=== PATIENT | female | born 1990 | race Caucasian/White ===

== ENCOUNTER 2018-04-11 11:50 | Day surgery (SDC) | payer BC, OTHER ==
--- NOTE | 2018-04-10 20:47 | PDGENHP ---
History and Physical - Chief Complaint LEFT HIP PAIN - History of Present Illness 1.~~~Left~Hip Dyplasia 2.~~~Left~Femoroacetabular impingement (TOÑA) Cam type,~with~resultant labral tear 3. ~~History of Right LANDY 2008 4. ~~Right hip Heterotopic Ossification~- Anterolateral HISTORY OF PRESENT ILLNESS: Demetriusis a 27 y.o.~very~~active female~who I have had the pleasure to consult on today. I have enjoyed meeting her.~She~lives in [place].~~Demetrius works for [employer].~~She~is single;~she~has no~children. ~ Demetriusenjoys dancing~contemporary/Jazz~(5-7hrs/week), and yoga. Anika's~left~hip pain~started two years ago, with~no~recalled trauma or injury, and with no~previous complaints. Demetriushas~a known history of hip dysplasia. 04/2008: Right LANDY Dr. Pettit ([place]) Presentation today is of~anterior, lateral~left~hip pain. ~The hip~does not~ wake her~at night and does~click and catch on her. Sitting~can be a real struggle~for her.~Demetriusdoes~report suffering from lower back pain episodes. Demetriushas not~participated in physical therapy and has~tried other conservative measures including Prolotherapy, Rolfing, and accupuncture.~Emily~ has not~received sufficient symptomatic improvement. Demetriushas not~utilized medication for pain management. Demetriusdenies issues with the right~hip. ~ Demetriusunderstands that she~has a hip and pelvis problem which should be researched and wishes to get a better understanding of her~hip status, followed by an establishment of a treatment strategy, hoping she~would be able to get back to her~well being active life. History: Past medical history:~~ None which is relevant~ Relevant familial history:~None which is relevant~ Past surgical history:~ No. Surgery Anesthesia Year 1 Right Hip arthroscopy/Right LANDY general 2008 Demetriusdenies problematic issues with general anesthesia in the past. I have reviewed, verified and agree with the past medical, surgical, family and social history. Current Medications:~currently has no medications in their medication list. ALLERGIES:~has No Known Allergies. Objective: Physical Examination: Demetriusis 5~feet 4~inches tall and weighs 135~Lbs. Demetriusis AAO x3; she~ is well-nourished, in NAD. Skin is warm and dry. ~Breathing is non-labored. ~CV with RRR by pulse. Abdomen is soft, NTND. Currently,~she~walks with a normal~gait. Trendelenburg sign is~negative~and proprioception is normal,~both~sides. She~presents with mild~signs of joint laxity. Beightons Score:~1 Lower spine examination is~negative~for sciatic or femoral nerve irritation with negative~SLR &~femoral stretch tests. Range of motion of the spine is normal~for flexion, extension, and rotations, with no~associated pain. Strength, Sensation and pulses are~normal -~bilaterally Ankles and knees exams are~normal~and no~mal-alignment is evident. She~has no leg length discrepancy. Thigh circumference is~symmetric~with no evidence for muscle atrophy~on both~ sides. Hip ROM (degrees): FL ER At 90~hip FL IR At 90~hip FL AB AD EX IR Neutral hip ER Neutral hip R 105 55 25 45 10 10 30 30 L 120 55 25 50 10 10 30 10 Specific hip and pelvis tests: Impingement Test WILBERTO Roll Add. Longus R Negative Negative Negative Negative L ++ Negative Negative + Glut. Med ITB Posterior Imp R Negative 5/5 strength Negative 5/5 strength Negative L Negative 5/5 strength Negative 5/5 strength Negative Squeeze test measured~weak Bony Symphysis pubis is~pain free~to touch while concentric activity of the rectus abdominis, does not~produce pain at its insertion. Ilio Psos specific tests are~negative for pain during cycling for~both hips~and no snap. HF has~weakness no pain~both hips. LEFT CAPSULE TENDERNESS Greater trochanteric burse is~pain free~on both hips. Piriformis tests: FAIR is~negative,~with no~local signs of neuritis related to sciatic nerve. SIJs examination is~normal~with normal~WILBERTO in relation and local tenderness. Hamstrings tests are~negative~functional contraction and negative~tendinopathy both hips. Imaging: Radiology studies which I have personally reviewed, analyzed and measured are below: XR: AP of the hip and pelvis: Performed in a~good~technique Coccyx to pubic symphysis distance~2~cm. 0~degrees [place] Lines are~preserved. Minimal~Pathological signs are seen in the Symphysis Pubis. Minimal~Pathological signs are seen at the Ischial tuberosity. ~ Specific measurements show: NSA~ LCE Sourcil~Angle Sharp's angle Lat. Cam Lat. Pincer C.Over~sign Head~Coverage % ATDmm R N 29 3 N/A - - N/A N N L N 16 15 42 - - 12:30 72 N Pos. wall sign ISS NAD ~~Dysplasia Comments R Negative Negative N/A Negative L Negative Negative 12.3~mm ++ Sclerosis Sup. Lat. OA Cysts Joint Space-WBZ Joint Space-Medial R Negative Negative Negative 3.9~mm 3.1~mm L Negative Negative Negative 4.5~mm 4.2~mm X Table lateral: Anterior cam lesion is~seen~on the left hip. Alpha Angle: ~ Left~65~degrees X-Ray: Right hip shows good bony correction from previous LANDY. Right hip heterotrophic ossification lateral to joint. Impression and plan:Matt Donaldson~is a 27 y.o.~active female~suffering from symptomatic Left~hip pain due to~Hip Dyplasia and~Femoroacetabular impingement (TOÑA)~Cam type,~with~ resultant labral tear causing significant disability to~her~and altering her~sport and life activities. Physical examination, imaging, and~her~story correspond with the diagnosis mentioned above. I explained that hip dysplasia is a condition wherein the hip joint has excessive play~and instability due to a variety of factors, including the depth and adequacy of the socket, the orientation of the femur bone, and ligament laxity around the hip joint. Dysplasia ranges in severity from borderline to angeline, with treatment options being specific to the specific nature of the problem. Left untreated, the instability in the hip joint can cause progressive tearing of the labrum and deterioration of the surface cartilage, ultimately resulting in progressive osteoarthritis of the hip. I explained that femoroacetabular impingement (TOÑA - Cam type) arises due to a bony or soft tissue conflict between the femur (ball) and acetabulum (socket) caused by an abnormality in the shape of the femoral head and neck. Over time, repetitive impingement can result in damage to the labrum and adjacent surface cartilage within the socket, ultimately giving rise to progressive osteoarthritis of the hip. I explained that although a labral tear can be a source of pain, it is rarely the root of the problem and typically occurs secondary to an underlying abnormality in the shape and mechanics of the hip joint. I reviewed conservative treatment options for Dysplasia and TOÑA including activity modification to avoid positions of impingement or instability, physical therapy, non-steroidal anti-inflammatory medications, and various injections (corticosteroid and PRP) aimed at reducing inflammation in the hip joint or/and preventing dynamic instability and impingement. PRP injections may promote healing and reduce symptoms in certain cases but it will not repair chronically damaged tissue. Although these measures may help to buy time~and reduce current level of symptoms, they are not a definitive solution to the problem given the underlying abnormality in the shape of the hip joint. Patients who have failed conservative management and continue to experience symptoms are candidates for definitive surgical treatment, which may consist of hip arthroscopy alone or in combination with more invasive bony realignment procedures of the hip socket and/or femur called periacetabular osteotomy (LANDY) or derotational femoral osteotomy (DFO). Hip arthroscopy typically includes treating the labrum with either repair or reconstruction of the torn labrum; as well as addressing the underlying abnormalities by restoring the normal shape to the hip joint. If the cartilage is damaged a Microfracture surgical procedure may also be necessary to help stimulate the growth of fibrocartilage. If a patient requires a labral reconstruction or a Microfracture, the initial rehabilitation from the surgery may take longer, but the cloth winding supervisor results are typically favorable. I reviewed the technical aspects of periacetabular osteotomy (LANDY) including risks, benefits, and expected course of recovery.~Anika~understands that LANDY is an inpatient procedure carried out through two medium sized incisions on the front and back of the hip joint. The hip socket is cut, realigned, and stabilized with 2 3 internal screws. Risks include infection, bleeding, injury to nearby nerves or vessels, stiffness, persistent pain, instability, failure of bony healing, implant related complications, and venous thromboembolic disease. Rarely, revision surgery may be required to address these problems. Risks, potential complications, side effects and recovery from surgical procedure were discussed in length. We explained how this surgery is an open procedure, and though patients tend to do well in the long-term, it involves significant pain in the first 2-4 weeks post-op and a rather lengthy rehab.~Overall recovery takes approximately 6 12~months depending on the extent of damage and degree of repair. Demetriusunderstands that she~will undergo hip arthroscopy 1 week prior to the LANDY to address damage inside the hip joint. Demetriusunderstands that hip arthroscopy and LANDY are two separate procedures that are best performed one week apart, with the arthroscopy commencing first to "tighten up" any pathology evident in the hip joint (labral repair, etc.) and the LANDY open procedure occurring 7-10 days later to realign the acetabulum. Demetriuswill review the info presented. In order to obtain more detailed information regarding the alignment, orientation, and shape of the bony hip and pelvis I will order a CT scan to be performed. The results of the CT scan, including femoral torsion and acetabular version measured values and 3D images, will aid me in deciding on the best treatment strategy and surgical pre-planning. In order to better evaluate the soft tissues and cartilage of the hip joint, I will order a~LEFT~MRI scan. Demetriuswill contact us if she~wishes to pursue further treatment in the future. Demetriusis happy with this plan. I have also supplied~her~with handouts, outlining the expected surgical treatment and rehab involved. I wish~Demetriusall the best, ~~ Chai Barraza, PAC History Information - Allergies/Home Medication List Allergies/Adverse Reactions: No Known Allergies Allergy (Verified 03/21/18 13:02) Home Medications: Herbals/Supplements -Info Only 1 ea PO DAILY 04/06/18 [Last Taken Unknown] I have personally reviewed and updated: medical history - Social History Smoking Status: Former smoker Review of Systems Review of Systems: Physical Exam Physical Exam:
[2018-04-11] MEDS ORDERED: ceFAZolin 2 GM/DEXTROSE 100 ML IV ONE (12:00)
[2018-04-11] MEDS ORDERED: ACETAMINOPHEN 500 MG TAB PO ONE (12:00)
[2018-04-11] MEDS ORDERED: PREGABALIN 150 MG CAP PO ONE (12:00)
[2018-04-11] MEDS ORDERED: LR 1,000 ML IV ONE (12:39)
[2018-04-11] MEDS ORDERED: EPINEPHrine 1 MG/ML INJ ONE (12:49)
[2018-04-11] MEDS ORDERED: BUPIVACAINE 0.25% 30 ML SDV ONE (12:49)
[2018-04-11] MEDS ORDERED: EPINEPHrine 30 MG/30 ML MDV (0.1 MG/0.1 ML) ONE (12:50)
[2018-04-11] MEDS ORDERED: SCOPOLAMINE HYDROBROMIDE 1 MG/3 DAYS PATCH TD ONE (14:55)
[2018-04-11] MEDS ORDERED: MIDAZOLAM 2 MG/2 ML VIAL IVP ONE (14:55)
--- NOTE | 2018-04-11 15:04 | PDANEPAE ---
ANE Past Medical History - Cardiovascular History Hx Hypertension: No Hx Arrhythmias: No Hx Chest Pain: No Hx Coronary Artery / Peripheral Vascular Disease: No Hx CHF / Valvular Disease: No Hx Palpitations: No - Pulmonary History Hx COPD: No Hx Asthma/Reactive Airway Disease: No Hx Recent Upper Respiratory Infection: No Hx Oxygen in Use at Home: No Hx Sleep Apnea: No Sleep Apnea Screening Result - Last Documented: Negative - Neurologic History Hx Cerebrovascular Accident: No Hx Seizures: No Hx Dementia: No Neurologic History Comment: hx of migraines. hx of numbness on left side of body- associated with anxiety and migraines - Endocrine History Hx Diabetes: No - Renal History Hx Renal Disorders: No - Liver History Hx Hepatic Disorders: No - Neurological & Psychiatric Hx Hx Neurological and Psychiatric Disorders: Yes Neurological / Psychiatric History Comment: anxiety. PTSD - Cancer History Hx Cancer: No - Congenital Disorder History Hx Congenital Disorders: Yes Congenital History Comment: hip dysplasia - GI History Hx Gastrointestinal Disorders: Yes Gastrointestinal History Comment: digestive issues- stable currently with herbs - Other Health History Other Health History: wears contacts. sores on buttocks, started as pimples currently healing - Chronic Pain History Chronic Pain: Yes (bilateral hips) - Surgical History Prior Surgeries: right LANDY in [place] 04/2008. wisdom teeth removal ANE Review of Systems Review of Systems: - Exercise capacity METS (RN): 4 METS ANE Patient History - Allergies Allergies/Adverse Reactions: No Known Allergies Allergy (Verified 03/21/18 13:02) - Home Medications Home Medications: Herbals/Supplements -Info Only 1 ea PO DAILY 04/06/18 [Last Taken 04/08/18] - NPO status NPO Since - Liquids (Date): 04/10/18 NPO Since - Liquids (Time): 23:30 NPO Since - Solids (Date): 04/10/18 NPO Since - Solids (Time): 19:30 - Smoking Hx Smoking Status: Former smoker - Family Anes Hx Family Hx Anesthesia Complications: none ANE Labs/Vital Signs - Vital Signs Vital Signs: reviewed preoperatively; see RN documention for details Blood Pressure: 118/88 Heart Rate: 89 Respiratory Rate: 16 O2 Sat (%): 98 Height: 162.56 cm Weight: 61.235 kg ANE Physical Exam - Airway Neck exam: FROM, decreased ROM Mallampati Score: Class 1 Mouth exam: normal dental/mouth exam - Pulmonary Pulmonary: clear to auscultation - Cardiovascular Cardiovascular: regular rate and rhythym - ASA Status ASA Status: II
[2018-04-11] MEDS ORDERED: fentaNYL 100 MCG/2 ML INJ ONE ×3 (15:10→18:27)
[2018-04-11] MEDS ORDERED: PROPOFOL 200 MG/20 ML VIAL ONE ×2 (15:10→16:54)
[2018-04-11] MEDS ORDERED: ROCURONIUM 50 MG/5 ML VIAL ONE (15:11)
[2018-04-11] MEDS ORDERED: DEXAMETHASONE 4 MG/ML VIAL ONE (15:11)
[2018-04-11] MEDS ORDERED: PHENYLEPHRINE HCL 100 MCG/ML SYR ONE (16:06)
[2018-04-11] MEDS ORDERED: GLYCOPYRROLATE 0.2 MG/1 ML VIAL ONE (17:10)
[2018-04-11] MEDS ORDERED: ONDANSETRON 4 MG/2 ML VIAL ONE (17:17)
[2018-04-11] MEDS ORDERED: NALOXONE HCL 0.4 MG/ML INJ IVP PRN (17:37)
[2018-04-11] MEDS ORDERED: oxyCODONE IR 5 MG TAB PO PRN (17:37)
[2018-04-11] MEDS ORDERED: PROMETHAZINE HCL 25 MG/ML INJ IVP PRN (17:37)
--- NOTE | 2018-04-11 17:38 | POSTANESTH ---
Post Anesthetic Evaluation Cardiovascular Status: Normal, Stable Respiratory Status: Normal, Stable Level of Consciousness/Mental Status: Mildly Sleepy, Arousable Pain Control: Adequate, Prn Tx Ordered Nausea/Vomiting Control: Adequate, Prn Tx Ordered Complications Possibly Related to Anesthesia: None Noted
[2018-04-11] MEDS: fentaNYL 100 MCG/2 ML INJ IVP PRN ×2 (18:30→18:40)
[2018-04-11] MEDS ORDERED: oxyCODONE IR 5 MG TAB ONE (19:14)
[2018-04-11 20:03] VITALS: BP 133/88
== END 2018-04-11 19:58 | disposition home or self-care (01) ==
LOC: FSGY 11:50
PROVIDERS: ATTEND Orthopaedic Surgery Sports Medicine
PROC: 0SBB4ZZ Excision of Left Hip Joint, Percutaneous Endoscopic Approach (ICD-10-PCS; principal; 2018-04-11 13:00)
PROC: 0SQB4ZZ Repair Left Hip Joint, Percutaneous Endoscopic Approach (ICD-10-PCS; principal; 2018-04-11 13:00)
DX: Q65.89 Other specified congenital deformities of hip (principal)
CPT/HCPCS: C1713; J0171; J0690; J1100; J2250; J2270; J2370; J2405; J2704; J3010

== ENCOUNTER 2018-04-18 07:01 | Inpatient (IN) | payer BC, OTHER ==
--- NOTE | 2018-04-17 22:06 | PDGENHP ---
History and Physical - Chief Complaint Right and Left hip pain - History of Present Illness 1.~~~Left~Hip Dyplasia 2.~~~Left~Femoroacetabular impingement (TOÑA) Cam type,~with~resultant labral tear 3. ~~History of Right LANDY 2008 4. ~~Right hip Heterotopic Ossification~- Anterolateral HISTORY OF PRESENT ILLNESS: Demetriusis a~26 y.o.~very~~active~female~who I have had the pleasure to consult on today.~I have enjoyed meeting her.~She~lives in [place].~~Demetrius works for [employer].~~She~is single;~she~has no~children. ~ Demetriusenjoys dancing~contemporary/Jazz~(5-7hrs/week), and yoga. Anika's~left~hip pain~started two years ago, with~no~recalled trauma or injury, and with~no~previous complaints.~Demetriushas~a known history of hip dysplasia. 04/2008: Right LANDY Dr. Pettit ([place]) Presentation today is of~anterior, lateral~left~hip pain. ~The hip~does not~ wake her~at night and~does~click and catch on~her. Sitting~can be a real struggle~for her.~Demetriusdoes~report suffering from lower back pain episodes. Demetriushas not~participated in physical therapy and has~tried other conservative measures including Prolotherapy, Rolfing, and accupuncture.~Emily~ has not~received sufficient symptomatic improvement. Demetriushas not~utilized medication for pain management. Demetriusdenies issues with the right~hip. ~ Demetriusunderstands that~emily~has a hip and pelvis problem which should be researched and wishes to get a better understanding of~her~hip status, followed by an establishment of a treatment strategy, hoping~emily~would be able to get back to~her~well being active life. History: Past medical history:~~ None which is relevant~ Relevant familial history:~None which is relevant~ Past surgical history:~ No. Surgery Anesthesia Year 1 Right Hip arthroscopy/Right LANDY general 2008 Demetriusdenies problematic issues with general anesthesia in the past. I have reviewed, verified and agree with the past medical, surgical, family and social history. Current Medications:~currently has no medications in their medication list. ALLERGIES:~has No Known Allergies. Objective: Physical Examination: Demetriusis 5~feet~4~inches tall and weighs~135~Lbs. Demetriusis AAO x3; she~ is well-nourished, in NAD. Skin is warm and dry. ~Breathing is non-labored. ~CV with RRR by pulse. Abdomen is soft, NTND. Currently,~she~walks with a~normal~gait. Trendelenburg sign is~negative~and proprioception~is normal,~both~sides. She~presents~with mild~signs of joint laxity.~Beightons Score:~1 Lower spine examination is~negative~for sciatic or femoral nerve irritation with negative~SLR &~femoral stretch tests. Range of motion of the spine is normal~for flexion, extension, and rotations,~with no~associated pain. Strength, Sensation and pulses are~normal -~bilaterally Ankles and knees exams are~normal~and~no~mal-alignment is evident.~ She~has~no leg length discrepancy. Thigh circumference is~symmetric~with no evidence for muscle atrophy~on both~ sides. Hip ROM (degrees): FL ER At 90~hip FL IR At 90~hip FL AB AD EX IR Neutral hip ER Neutral hip R 105 55 25 45 10 10 30 30 L 120 55 25 50 10 10 30 10 Specific hip and pelvis tests: Impingement Test WILEBRTO Roll Add. Longus R Negative Negative Negative Negative L ++ Negative Negative + Glut. Med ITB Posterior Imp R Negative 5/5 strength Negative 5/5 strength Negative L Negative 5/5 strength Negative 5/5 strength Negative Squeeze test measured~weak Bony Symphysis pubis is~pain free~to touch while concentric activity of the rectus abdominis, does not~produce pain at its insertion. Ilio Psos specific tests are~negative for pain during cycling for~both hips~and no snap. HF has~weakness no pain~both hips. LEFT CAPSULE TENDERNESS Greater trochanteric burse is~pain free~on both hips. Piriformis tests: FAIR is~negative,~with no~local signs of neuritis related to sciatic nerve. SIJs examination is~normal~with~normal~WILBERTO in relation and local tenderness. Hamstrings tests are~negative~functional contraction and negative~tendinopathy both hips. Imaging: Radiology studies which I~have personally reviewed, analyzed and measured are below: XR: AP of the hip and pelvis: Performed in a~good~technique Coccyx to pubic symphysis distance~2~cm. 0~degrees [place]~Lines are preserved. Minimal~Pathological signs are seen in the Symphysis Pubis.~ Minimal~Pathological signs are seen at the Ischial~tuberosity. ~ Specific measurements show: NSA~ LCE Sourcil~Angle Sharp's angle Lat. Cam Lat. Pincer C.Over~sign Head~Coverage % ATDmm R N 29 3 N/A - - N/A N N L N 16 15 42 - - 12:30 72 N Pos. wall sign ISS NAD ~~Dysplasia Comments R Negative Negative N/A Negative L Negative Negative 12.3~mm ++ Sclerosis Sup. Lat. OA Cysts Joint Space-WBZ Joint Space-Medial R Negative Negative Negative 3.9~mm 3.1~mm L Negative Negative Negative 4.5~mm 4.2~mm X Table lateral: Anterior cam lesion is~seen~on the left hip. Alpha Angle: ~ Left~65~degrees X-Ray: Right hip shows good bony correction from previous LANDY. Right hip heterotrophic ossification lateral to joint. Impression and plan:~ Anika~is a~26 y.o.~active female~suffering from symptomatic~Left~hip pain due to~Hip Dyplasia and~Femoroacetabular impingement (TOÑA)~Cam type,~with~ resultant labral tear causing significant disability to~her~and altering~her~sport and life activities. Physical examination, imaging, and~her~story correspond with the diagnosis mentioned above. I explained that hip dysplasia is a condition wherein the hip joint has excessive play~and instability due to a variety of factors, including the depth and adequacy of the socket, the orientation of the femur bone, and ligament laxity around the hip joint. Dysplasia ranges in severity from borderline to angeline, with treatment options being specific to the specific nature of the problem. Left untreated, the instability in the hip joint can cause progressive tearing of the labrum and deterioration of the surface cartilage, ultimately resulting in progressive osteoarthritis of the hip. I explained that femoroacetabular impingement (TOÑA - Cam type) arises due to a bony or soft tissue conflict between the femur (ball) and acetabulum (socket) caused by an abnormality in the shape of the femoral head and neck. Over time, repetitive impingement can result in damage to the labrum and adjacent surface cartilage within the socket, ultimately giving rise to progressive osteoarthritis of the hip. I explained that although a labral tear can be a source of pain, it is rarely the root of the problem and typically occurs secondary to an underlying abnormality in the shape and mechanics of the hip joint. I reviewed conservative treatment options for Dysplasia and TOÑA including activity modification to avoid positions of impingement or instability, physical therapy, non-steroidal anti-inflammatory medications, and various injections (corticosteroid and PRP) aimed at reducing inflammation in the hip joint or/and preventing dynamic instability and impingement. PRP injections may promote healing and reduce symptoms in certain cases but it will not repair chronically damaged tissue. Although these measures may help to buy time~and reduce current level of symptoms, they are not a definitive solution to the problem given the underlying abnormality in the shape of the hip joint. Patients who have failed conservative management and continue to experience symptoms are candidates for definitive surgical treatment, which may consist of hip arthroscopy alone or in combination with more invasive bony realignment procedures of the hip socket and/or femur called periacetabular osteotomy (LANDY) or derotational femoral osteotomy (DFO). Hip arthroscopy typically includes treating the labrum with either repair or reconstruction of the torn labrum; as well as addressing the underlying abnormalities by restoring the normal shape to the hip joint. If the cartilage is damaged a Microfracture surgical procedure may also be necessary to help stimulate the growth of fibrocartilage. If a patient requires a labral reconstruction or a Microfracture, the initial rehabilitation from the surgery may take longer, but the grinder set up operator centerless results are typically favorable. I reviewed the technical aspects of periacetabular osteotomy (LANDY) including risks, benefits, and expected course of recovery.~Anika~understands that LANDY is an inpatient procedure carried out through two medium sized incisions on the front and back of the hip joint. The hip socket is cut, realigned, and stabilized with 2 3 internal screws. Risks include infection, bleeding, injury to nearby nerves or vessels, stiffness, persistent pain, instability, failure of bony healing, implant related complications, and venous thromboembolic disease. Rarely, revision surgery may be required to address these problems. Risks, potential complications, side effects and recovery from surgical procedure were discussed in length. We explained how this surgery is an open procedure, and though patients tend to do well in the long-term, it involves significant pain in the first 2-4 weeks post-op and a rather lengthy rehab.~Overall recovery takes approximately 6 12~months depending on the extent of damage and degree of repair. Demetriusunderstands that she~will undergo hip arthroscopy 1 week prior to the LANDY to address damage inside the hip joint. Demetriusunderstands that hip arthroscopy and LANDY are two separate procedures that are best performed one week apart, with the arthroscopy commencing first to "tighten up" any pathology evident in the hip joint (labral repair, etc.) and the LANDY open procedure occurring 7-10 days later to realign the acetabulum. Demetriuswill review the info presented. In order to obtain more detailed information regarding the alignment, orientation, and shape of the bony hip and pelvis I will order a CT scan to be performed. The results of the CT scan, including femoral torsion and acetabular version measured values and 3D images, will aid me in deciding on the best treatment strategy and surgical pre-planning. In order to better evaluate the soft tissues and cartilage of the hip joint, I will order a~LEFT~MRI scan. Demetriuswill contact us if she~wishes to pursue further treatment in the future. Demetriusis happy with this plan. I have also supplied~her~with handouts, outlining the expected surgical treatment and rehab involved. I wish~Demetriusall the best, ~~ Chai Barraza, PAC History Information - Allergies/Home Medication List Allergies/Adverse Reactions: No Known Allergies Allergy (Verified 04/13/18 12:44) Home Medications: Herbals/Supplements -Info Only 1 ea PO DAILY 04/06/18 [Last Taken 04/08/18] Naproxen 04/13/18 [Last Taken Unknown] Oxycodone HCl 04/13/18 [Last Taken Unknown] I have personally reviewed and updated: medical history - Social History Smoking Status: Smoker current status UNK Review of Systems Review of Systems: Physical Exam Physical Exam:
[2018-04-18] MEDS ORDERED: PREGABALIN 150 MG CAP PO ONE (07:12)
[2018-04-18] MEDS ORDERED: ACETAMINOPHEN 500 MG TAB PO ONE (07:12)
[2018-04-18] MEDS ORDERED: SCOPOLAMINE HYDROBROMIDE 1 MG/3 DAYS PATCH TD ONE (07:12)
[2018-04-18] MEDS ORDERED: TRANEXAMIC ACID 1,000 MG in NS 100 ML IV ONE (07:12)
[2018-04-18] MEDS ORDERED: ceFAZolin 2 GM/DEXTROSE 100 ML IV ONE (07:12)
[2018-04-18] MEDS ORDERED: LIDOCAINE 1% 2 ML INJ ID PRN (07:12)
[2018-04-18] MEDS ORDERED: LR 1,000 ML IV ONE (07:12)
[2018-04-18] MEDS ORDERED: CITRATE DEXTROSE SOLN 500 ML BAG ONE ×3 (07:38→11:39)
--- NOTE | 2018-04-18 08:08 | PDANEPAE ---
ANE History of Present Illness L DORENE of dysplasia ANE Past Medical History - Cardiovascular History Hx Hypertension: No Hx Arrhythmias: No Hx Chest Pain: No Hx Coronary Artery / Peripheral Vascular Disease: No Hx CHF / Valvular Disease: No Hx Palpitations: No - Pulmonary History Hx COPD: No Hx Asthma/Reactive Airway Disease: No Hx Recent Upper Respiratory Infection: No Hx Oxygen in Use at Home: No Hx Sleep Apnea: No Sleep Apnea Screening Result - Last Documented: Negative - Neurologic History Hx Cerebrovascular Accident: No Hx Seizures: No Hx Dementia: No Neurologic History Comment: hx of migraines. hx of numbness on left side of body- associated with anxiety and migraines - Endocrine History Hx Diabetes: No - Renal History Hx Renal Disorders: No - Liver History Hx Hepatic Disorders: No - Neurological & Psychiatric Hx Hx Neurological and Psychiatric Disorders: Yes Neurological / Psychiatric History Comment: migraines - Cancer History Hx Cancer: No - Congenital Disorder History Hx Congenital Disorders: No Congenital History Comment: hip dysplasia - GI History Hx Gastrointestinal Disorders: Yes Gastrointestinal History Comment: diarrhea - Other Health History Other Health History: Staph infection prior to last sx. scope incitions - Chronic Pain History Chronic Pain: Yes (knee pain) - Surgical History Prior Surgeries: L hip scope/femoroplasty. 2009 dorene ANE Review of Systems Review of Systems: - Exercise capacity METS (RN): 5 METS ANE Patient History - Allergies Allergies/Adverse Reactions: No Known Allergies Allergy (Verified 04/13/18 12:44) - Home Medications Home medications: home medication list seen and reviewed Home Medications: Herbals/Supplements -Info Only 1 ea PO DAILY 04/06/18 [Last Taken 04/08/18] Naproxen 04/13/18 [Last Taken 04/15/18] Oxycodone HCl 04/13/18 [Last Taken Unknown] - NPO status NPO Status: no food or drink >8 hours NPO Since - Liquids (Date): 04/17/18 NPO Since - Liquids (Time): 22:00 NPO Since - Solids (Date): 04/17/18 NPO Since - Solids (Time): 19:30 - Anes Hx Anes Hx: post operative nausea - Smoking Hx Smoking Status: Never smoked - Alcohol Use Alcohol Use: Occasionally - Family Anes Hx Family Anes Hx: none Family Hx Anesthesia Complications: none ANE Labs/Vital Signs - Vital Signs Blood Pressure: 128/81 Heart Rate: 100 Respiratory Rate: 16 O2 Sat (%): 99 Height: 162.56 cm Weight: 61.235 kg ANE Physical Exam - Airway Neck exam: FROM Mallampati Score: Class 2 Mouth exam: normal dental/mouth exam - Pulmonary Pulmonary: no respiratory distress - Cardiovascular Cardiovascular: regular rate and rhythym - ASA Status ASA Status: I ANE Anesthesia Plan Anesthesia Plan: general endotracheal anesthesia, spinal (morphine)
[2018-04-18] MEDS ORDERED: MIDAZOLAM 2 MG/2 ML VIAL ONE (08:19)
[2018-04-18] MEDS ORDERED: MIDAZOLAM 2 MG/2 ML VIAL IVP ONE (08:20)
[2018-04-18] MEDS ORDERED: fentaNYL 100 MCG/2 ML INJ ONE ×3 (08:21→15:18)
[2018-04-18] MEDS ORDERED: PROPOFOL/EMULSION 500 MG/50 ML BOTTLE IV ONE (08:22)
[2018-04-18] MEDS ORDERED: morphINE PF 5 MG/10 ML INJ ONE (08:22)
[2018-04-18] MEDS ORDERED: ONDANSETRON 4 MG/2 ML VIAL ONE (08:24)
[2018-04-18] MEDS ORDERED: DEXAMETHASONE 4 MG/ML VIAL ONE ×3 (08:24→14:47)
[2018-04-18] MEDS ORDERED: ROCURONIUM 50 MG/5 ML VIAL ONE (08:24)
[2018-04-18] MEDS ORDERED: LIDOCAINE 2% 100 MG/5 ML SYR ONE (08:25)
[2018-04-18] MEDS ORDERED: LIDOCAINE HCL 160 MG/4 ML LTA KIT TP ONE (08:26)
[2018-04-18 08:43] LABS: PLATELET COUNT 229 10^3/uL (150-400)
[2018-04-18] MEDS ORDERED: PHENYLEPHRINE HCL 100 MCG/ML SYR ONE (08:48)
[2018-04-18] MEDS ORDERED: ePHEDrine SULFATE 25 MG/5 ML SYR ONE (09:47)
[2018-04-18] MEDS ORDERED: PROPOFOL 200 MG/20 ML VIAL ONE ×2 (11:23→13:03)
[2018-04-18] MEDS ORDERED: METOCLOPRAMIDE 10 MG/2 ML VIAL IVP PRN ×2 (14:22→14:32)
[2018-04-18] MEDS ORDERED: ONDANSETRON 4 MG/2 ML VIAL IVP PRN ×3 (14:22→16:02)
[2018-04-18] MEDS ORDERED: NALOXONE HCL 0.4 MG/ML INJ IVP PRN ×3 (14:22→16:05)
[2018-04-18] MEDS ORDERED: ceFAZolin 1 GM VIAL ONE (14:25)
[2018-04-18] MEDS ORDERED: HYDROCODONE/APAP 5/325 TAB PO PRN (14:32)
[2018-04-18] MEDS ORDERED: ALBUTEROL 3 ML DEYVIAL IH PRN (14:32)
[2018-04-18] MEDS ORDERED: DEXAMETHASONE 4 MG/ML VIAL IVP PRN (14:32)
[2018-04-18] MEDS ORDERED: oxyCODONE IR 5 MG TAB PO PRN (14:32)
[2018-04-18] MEDS ORDERED: LABETALOL HCL 5 MG/ML 20 ML MDV IVP PRN (14:32)
[2018-04-18] MEDS ORDERED: MEPERIDINE 25 MG/0.5 ML AMP IVP PRN (14:32)
[2018-04-18] MEDS ORDERED: LR 500 ML IV PRN (14:32)
[2018-04-18] MEDS ORDERED: PHENYLEPHRINE HCL 100 MCG/ML SYR IVP PRN (14:32)
[2018-04-18] MEDS ORDERED: PROMETHAZINE HCL 25 MG/ML INJ IVP PRN (14:32)
[2018-04-18] MEDS: fentaNYL 100 MCG/2 ML INJ IVP PRN ×2 (15:20→15:30)
[2018-04-18] MEDS ORDERED: ACETAMINOPHEN 325 MG TAB PO PRN (16:02)
[2018-04-18] MEDS ORDERED: POLYETHYLENE GLYCOL 3350 17 GM PKT PO PRN (16:02)
[2018-04-18] MEDS ORDERED: ONDANSETRON DISINTEGRATING 4 MG TAB PO PRN (16:02)
[2018-04-18] MEDS ORDERED: BISACODYL 10 MG SUPP PR PRN (16:02)
[2018-04-18] MEDS ORDERED: MAGNESIUM HYDROXIDE 30 ML UDCUP PO PRN (16:02)
[2018-04-18] MEDS ORDERED: LACTULOSE 20 GM/30 ML UDCUP PO PRN (16:02)
[2018-04-18] MEDS ORDERED: HYDROmorphONE/DILAUDID 6 MG/30 ML PCA IV PRN (16:05)
[2018-04-18] MEDS ORDERED: diphenhydrAMINE 25 MG CAP PO PRN (16:05)
[2018-04-18] MEDS: NAPROXEN SODIUM 220 MG TAB PO SCH (21:04)
[2018-04-18] MEDS: oxyCODONE IR 5 MG TAB PO SCH ×2 (21:06→23:09)
--- NOTE | 2018-04-18 22:26 | SUROPNOTE ---
TARAN Operative Report - Surgery Surgery was performed at [facility] on~04/18/18~ Diagnosis:~Left 1. Hip Acetabular Dysplasia ~ Operation~1: Left~Rama Acetabular Osteotomy (LANDY) Surgeon: Rock Nichols MD Doorperson:~~Jewels Rose MD Anesthetic: General + spinal Procedure: General anesthetic. Antibiotics given. Cell saver in use. Fluoroscopy. Phase 1: Position lateral, diagonal skin incision between ischial tuberosity and greater trochanter as for posterior hip approach. Blunt split of glut max fibers. Identification of fat pad overlying sciatic nerve. Exposure of sciatic nerve under fat pad, gently retracting it away-medially to ischial tuberosity. Exposure of subcotoloid fossa proximal to short rotators. UsingPrecision saw, osteotomy of subcotoloid becqo10-86 mm short of (lateral to) thesciatic notch. Closure of lateral cut. Patient is turned supine. Phase 2: Skin incision just distal to ASIS. Using diathermy the iliac spine was exposed and inguinal ligament + Sartorious were retracted medially, taking the LFCN with them, protecting it. Inner ilium was dissected from iliacus muscle bluntly , with a cob and swab. Dissection continued towards lateral superior ramus pubis. Using fluoroscopy an osteotomy of lateral superior ramus, just medial to tear drop, was performed with~curved fish mouth osteotome. Phase 3: Osteotomy lines of the ilium were marked with diathermy as pre planned according to XR/CT and expected correction of acatabulum. 2 Shanz screws were drilled into central acetabular fragment, corresponding with planned correction angles, in order to mobilize central acetabular fragment after osteotomy is complete. ~Iliac osteotomy was performed with reciprocating saw and the main acetabular fragment was moved to realign weight bearing position. After confirmation of correction using fluoroscopy in AP and false profile planes, the fragment was fixed with 1 -~6.5mm~~full threaded~screw~and 1 -~5.5mm~~full threaded~screw~and 1x4mm fully threaded Inguinal ligament and Sartorious were attached back to ASIS through drill holes. Incision was closed according to soft tissue layers. Skin was closed with~subdermal Monocryl. Final fluoro shots were obtained to confirm position/correction. After surgery~Anika~moved both lower limbs and had no NV motor compromise. Specimen - none Bleeding -~800ml Complication - none Bleeding:~800~cc into cell-saver, 405~of blood products were returned to patient. Surgery 2 Diagnosis: ~Pain generated by screws, post LANDY Indication:~Failure to obtain satisfactory results with long standing conservative measures. ~ Operation:~Right~hip screws removal (3~screws) from iliac crest Surgeon: Rock Nichols MD Digital Ad Trafficker:~~~Jewels Rose MD Anaesthetic:~General Procedure: The patient was placed in the supine position. Antibiotics were given. Prepping and draping was performed as per usual fashion. ~Under C arm the 3~screws were identified. A 2~cm incision was performed corresponding to the previous scar. Subcutaneous tissue was incised. The 3~screws were identified. Using a screwdriver 2~screws were removed without complication.~The 3rd screw head broke off so I decided to leave screw which was buried in bone inside. Removing this old screw with full bone growth and this length could have negatively affect the left side LANDY at this point.~ Hemostasia and irrigation were performed. Closure was performed through different layers. Local anesthetic was applied to the incision. Dressings were applied. ~ After surgery,~Alexandramoved both lower limbs and had no NV compromise. Post op instructions: 1.~toe touch~weight bearing till post op XR then FWB~crutches for 6 weeks 2. Epidural analgesia for 24-48 hours 3. Continuous SCD 4. Aspirin 81 mg X1 day once Epidural is discontinued 5. Avoid hip flexion past 90 and hip External rotation. 6. PT according to my recommendations at follow up visit Kind regards, Dr. Rock Nichols .
[2018-04-18] MEDS: SENNOSIDES/DOCUSATE SODIUM TAB PO SCH (23:06)
[2018-04-18] MEDS: NS 1,000 ML IV SCH (23:11)
[2018-04-19] MEDS: oxyCODONE IR 5 MG TAB PO SCH ×4 (02:32→17:34)
[2018-04-19] MEDS: NS 1,000 ML IV SCH (08:49)
[2018-04-19] MEDS: PANTOPRAZOLE SODIUM 40 MG TAB PO SCH (08:50)
--- NOTE | 2018-04-19 09:44 | PDMN ---
Medical Necessity Medical necessity: MCG GRG musculoskeletal sgy OP: Olive BILL
--- NOTE | 2018-04-19 09:48 | ASMTCMCOM ---
CM Note CM Note Notes: Patient is POD #1 LANDY. Per PT, she will be able to d/c home independently. She has many supportive friends. Her parents are here now but flying back to [place] soon. She has outpatient PT scheduled. I explained how private duty caregiver services work and offered list (family declined for now). No CM needs but we are available if this changes. Date Signed: 04/19/2018 09:47 AM Electronically Signed By:Talisha Boyd RN
--- NOTE | 2018-04-19 12:29 | GCON ---
[f rep st] CONSULTATION REFERRING PHYSICIAN: Rock Nichols MD REASON FOR CONSULTATION: Medical management HISTORY OF PRESENT ILLNESS: The patient is a 27-year-old female with a past medical history of bilateral hip dysplasia. She had a right LANDY in 2008, with good results. She was admitted for a left hip LANDY, as well as hardware removal on the right side. She started having more pain in the left hip area. She described that her hip would get locked in place. 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 She is very hopeful that this surgery will help her activity level. During my interview, her pain is well managed. Earlier today, she had a fall, but landed in the bed. She got lightheaded and lost her balance and fell forward, but did not hit the floor. She has no other complaints. No chest pain. No shortness of breath. No changes in her weight or vision. Overall, the pain is well managed. PAST MEDICAL HISTORY: 1. Recurrent vaginal infections. 2. Recent treatment for a staph infection on her face and gluteus area. She was treated with Keflex for this. PAST SURGICAL HISTORY: 1. LANDY on the right in 2008. 2. [place] tooth extraction. FAMILY HISTORY: Her mother from pancreatic pancreatic cancer at age 55. Her father is overall. SOCIAL HISTORY: She works at [employer] . She works as a caregiver. She does not have any children. She is in a relationship. She uses cannabis daily to help her sleep. She has a few alcoholic beverages a week. She denies any use of any type of street drugs. ALLERGIES: No known allergies. HOME MEDICATIONS: Cephalexin 1 cap t.i.d. naproxen 500 mg q.12 hours, and herbal supplements daily. REVIEW OF SYSTEMS: A 10-point review of system was performed and was negative, other than pertinent positives in HPI and past medical history. PHYSICAL EXAM: GENERAL: The patient is a 27-year-old female who appears to be in excellent health. VITAL SIGNS: Blood pressure is 108/73, heart rate is 71, respiratory rate of 16, O2 sats on room air 97%, temperature is 37.1 Celsius. HEENT: Eyes: Pupils are equal reactive. EOMs are intact. ENT: Normal ears. Hearing intact. Oral airways moist. NECK: Trachea is midline. CARDIOVASCULAR: She is slightly bradycardic in a regular rate and rhythm. No murmurs, rubs, or gallops noted. CHEST: Lungs normal respiratory effort. ABDOMEN: Soft, nontender. GENITOURINARY: She has a Willingham in the urethra. SKIN: No rashes, ulcers noted. She has swelling noted at the left hip area with a dressing dry and intact. MUSCULOSKELETAL: Not evaluated. PSYCHIATRIC: She is alert, oriented to person, place, time, and situation. She appears to have normal insight, judgment, and memory. DATA REVIEWED: A CBC shows a white blood cell count of 11.02, hemoglobin 9.6, hematocrit of 28.8, platelet count of 188. Chemistry: Sodium is 137, potassium 3.9, chloride of 112, CO2 of 23, anion gap of 2, BUN 11, creatinine 0.7, glucose of 101, calcium of 8.1. screen is negative. ASSESSMENT/PLAN: 1. Gait instability with a fall. I suspect she had a vasovagal event. Recommended she get up slowly from lying to sitting and then slowly standing. 2. Left hip dysplasia, status post a left periacetabular osteotomy. Pain is well controlled. Care per orthopedics. 3. History of recurrent vaginal infections. Will ask that the Willingham catheter be removed. 4. Anemia. Will get repeat labs in the morning. 5. Leukocytosis. Likely reactive, but will follow with her history of staph infections. 6. Recent staph infection to the right facial area. This has since resolved. I did not evaluate the gluteus area, have asked the nursing staff to notify me if there are any concerns. 7. Deep venous thrombosis prophylaxis, on aspirin therapy. Thank you for this consultation. The hospitalist will continue to follow the patient during her hospital stay. /[id number]/MODL MTDD
--- NOTE | 2018-04-19 12:38 | POSTANESTH ---
Post Anesthetic Evaluation Cardiovascular Status: Normal, Stable Respiratory Status: Normal, Stable Level of Consciousness/Mental Status: Can Participate in Eval, Alert and Oriented Pain Control: Adequate, Prn Tx Ordered Nausea/Vomiting Control: Adequate, Prn Tx Ordered Complications Possibly Related to Anesthesia: None Noted (s/p Spinal Duramorph, states her pain is well controlled, no complaints.)
[2018-04-19] MEDS: NAPROXEN SODIUM 220 MG TAB PO SCH ×3 (13:53→21:14)
[2018-04-19] MEDS: SENNOSIDES/DOCUSATE SODIUM TAB PO SCH ×2 (14:13→21:15)
[2018-04-19] MEDS: DIAZEPAM 2 MG TAB PO PRN ×2 (14:16→21:18)
--- NOTE | 2018-04-19 14:43 | SOAPPROG ---
SOAP Progress Note Assessment/Plan: Assessment: 1 day post op Right Hip screw removal Left LANDY Plan: Oxycodone BILINGUAL TEACHER ordered not yet started SCDs and 81mg aspirin for DVT prophylaxis up with PT/OT Pelvis X-ray POD#3 04/19/18 14:39 Subjective: This morning Sandhya had a brief episode of syncope falling back into her bed after getting up. She reports being well pain managed with Oxycodone alone. Willingham catheter is out. She denies any cp, no sob or nausea. Objective: Vital Signs Temp Pulse Resp BP Pulse Ox 37.1 C 71 16 108/73 97 04/19/18 11:21 04/19/18 11:21 04/19/18 11:21 04/19/18 11:21 04/19/18 11:21 Laboratory Results 04/19/18 04:55 04/19/18 04:55 04/18/18 04/19/18 04/20/18 05:59 05:59 05:59 Intake Total 3392 Output Total 1900 100 Balance 1492 -100 Well appearing in NAD Right Hip: dressings clean dry intact some ecchymosis and edema Left Hip: dressings clean dry intact ecchymosis and edema NVI distally Full ROM of foot and ankle - Pending Discharge Pending Discharge Within 48 Hours: Yes Pending Discharge Date: 04/21/18 Pending Discharge Time: 11:00 ICD10 Worksheet Patient Problems: Problems Problem Status Onset Post-op pain Acute - ICD10 Problem Qualifiers (1) Post-op pain
[2018-04-19] MEDS ORDERED: oxyCODONE IR 5 MG TAB PO ONE (17:15)
[2018-04-19] MEDS: oxyCODONE IR 5 MG TAB PO PRN (21:14)
[2018-04-20] MEDS: oxyCODONE IR 5 MG TAB PO PRN ×5 (00:07→22:13)
[2018-04-20 05:45] LABS: PLATELET COUNT 153 10^3/uL (150-400)
[2018-04-20] MEDS: DIAZEPAM 2 MG TAB PO PRN ×3 (08:54→22:12)
[2018-04-20] MEDS: SENNOSIDES/DOCUSATE SODIUM TAB PO SCH ×2 (08:55→22:11)
[2018-04-20] MEDS: NAPROXEN SODIUM 220 MG TAB PO SCH ×3 (08:55→22:12)
[2018-04-20] MEDS: PANTOPRAZOLE SODIUM 40 MG TAB PO SCH (08:55)
[2018-04-20] MEDS: APPLE CIDER VINEGAR PO SCH (10:04)
--- NOTE | 2018-04-20 16:42 | HOSPPROG ---
Hospitalist Progress Note Assessment/Plan: 27 yo F w LANDY pain: well controlled proph: IS VTE proph per ortho ABLA: no ongoing blood loss dispo: inpt Subjective: pain well controlled. using IS Objective: Vital Signs Temp Pulse Resp BP Pulse Ox 37.2 C 83 18 111/71 95 04/20/18 15:35 04/20/18 15:35 04/20/18 15:35 04/20/18 15:35 04/20/18 15:35 Laboratory Results 04/20/18 04:48 04/19/18 04:55 04/19/18 04/20/18 04/21/18 05:59 05:59 05:59 Intake Total 3392 1500 Output Total 1900 2300 300 Balance 1492 -800 -300 - Physical Exam Constitutional: no apparent distress, appears nourished Eyes: PERRL, anicteric sclera Ears, Nose, Mouth, Throat: moist mucous membranes, hearing normal Cardiovascular: regular rate and rhythym, no murmur, rub, or gallop Respiratory: no respiratory distress, no rales or rhonchi Gastrointestinal: normoactive bowel sounds, soft, non-tender abdomen Genitourinary: No douglas in urethra Skin: warm, normal color Musculoskeletal: full muscle strength ICD10 Worksheet Patient Problems: Problems Problem Status Onset Post-op pain Acute
[2018-04-20] MEDS: ASPIRIN EC 81 MG TAB PO SCH (22:11)
--- NOTE | 2018-04-20 22:38 | SOAPPROG ---
SOAP Progress Note Assessment/Plan: Assessment: 27 yo F POD#2 s/p L LANDY, R hip HWR. Doing well post-op. Plan: Continue PO pain control SCDs and 81mg aspirin for DVT prophylaxis Up with PT/OT -- needs to do stairs prior to d/c Pelvis X-ray POD#3 -- needs to be cleared prior to d/c Anticipate ready for discharge Wednesday vs Wednesday04/20/18 22:35 Objective: Vital Signs Temp Pulse Resp BP Pulse Ox 37.1 C 71 15 107/67 96 04/20/18 20:00 04/20/18 20:00 04/20/18 20:00 04/20/18 20:00 04/20/18 20:00 Laboratory Results 04/20/18 04:48 04/19/18 04:55 04/19/18 04/20/18 04/21/18 05:59 05:59 05:59 Intake Total 3392 1500 500 Output Total 1900 2300 300 Balance 1492 -800 200 Gen: NAD, pleasant b/l hip dressings c/d/i L lateral thigh numbness in LFCN distribution 5/5 TA, GSC, EHL SILT throughout foot ICD10 Worksheet Patient Problems: Problems Problem Status Onset Post-op pain Acute
[2018-04-21] MEDS: oxyCODONE IR 5 MG TAB PO PRN ×4 (02:20→18:40)
[2018-04-21] MEDS: SENNOSIDES/DOCUSATE SODIUM TAB PO SCH ×2 (09:13→20:06)
[2018-04-21] MEDS: APPLE CIDER VINEGAR PO SCH (09:19)
[2018-04-21] MEDS: ASPIRIN EC 81 MG TAB PO SCH (09:20)
[2018-04-21] MEDS: NAPROXEN SODIUM 220 MG TAB PO SCH ×3 (09:20→22:05)
[2018-04-21] MEDS: PANTOPRAZOLE SODIUM 40 MG TAB PO SCH (09:22)
--- NOTE | 2018-04-21 09:50 | HOSPPROG ---
Hospitalist Progress Note Assessment/Plan: Sandhya is a 27 yo F w LANDY *hip dysplasia -s/p left LANDY -pain is well managed, but increased last night while ambulating *diarrhea and lightheadedness -occurred last evening, resolved *ABLA -follow -patient is also on her cycle *DVT prophylaxis -asa per surgical team *plan: check labs in a.m. Subjective: Sandhya is feeling fine today, eating and drinking well. Objective: Vital Signs Temp Pulse Resp BP Pulse Ox 36.6 C 60 14 99/65 L 98 04/21/18 08:25 04/21/18 08:00 04/21/18 08:00 04/21/18 08:00 04/21/18 08:00 Laboratory Results 04/20/18 04:48 04/19/18 04:55 04/20/18 04/21/18 04/22/18 05:59 05:59 05:59 Intake Total 1500 500 Output Total 2300 300 Balance -800 200 - Physical Exam Constitutional: no apparent distress, appears nourished, uncomfortable Eyes: PERRL Ears, Nose, Mouth, Throat: hearing normal Cardiovascular: regular rate and rhythym Respiratory: no respiratory distress Gastrointestinal: normoactive bowel sounds Skin: warm, other (swelling in left hip and upper thigh area), No normal color ( pale) Musculoskeletal: generalized weakness Neurologic: AAOx3 Psychiatric: interacting appropriately ICD10 Worksheet Patient Problems: Problems Problem Status Onset Post-op pain Acute
[2018-04-22] MEDS: oxyCODONE IR 5 MG TAB PO PRN ×4 (00:27→16:31)
--- NOTE | 2018-04-22 08:42 | HOSPPROG ---
Hospitalist Progress Note Assessment/Plan: Sandhya is a 27 yo F w LANDY *hip dysplasia -s/p left LANDY -pain is well managed, *diarrhea and lightheadedness -none further *ABLA -follow -patient is also on her cycle *DVT prophylaxis -asa per surgical team *plan: ortho to dc today, she is going to take a shower prior to dc, Recommended to Sandhya to have friends stay with her for the next several days Subjective: Sandhya said she is feeling fine overall. Objective: Vital Signs Temp Pulse Resp BP Pulse Ox 36.8 C 61 14 97/48 L 93 04/22/18 04:00 04/22/18 04:00 04/22/18 04:00 04/22/18 04:00 04/22/18 04:00 Laboratory Results 04/22/18 04:51 04/19/18 04:55 04/21/18 04/22/18 04/23/18 05:59 05:59 05:59 Intake Total 500 250 Output Total 300 1 Balance 200 249 - Physical Exam Constitutional: no apparent distress, appears nourished Eyes: PERRL Ears, Nose, Mouth, Throat: hearing normal Respiratory: no respiratory distress Skin: warm, other (left hip w some swelling), No normal color (pale) Neurologic: AAOx3 Psychiatric: interacting appropriately ICD10 Worksheet Patient Problems: Problems Problem Status Onset Post-op pain Acute
--- NOTE | 2018-04-22 09:11 | SOAPPROG ---
SOAP Progress Note Assessment/Plan: Assessment: 4th day post op Right Hip screw removal Left LANDY Plan: DC home see d/c instructions 04/19/18 14:39 04/22/18 09:09 Subjective: Sandhya is doing well this morning. Her pain is managed with Oxycodone, she is eating well, breathing well, denies cp or sob. She has been up with PT/OT and ambulating fine with walker/crutches. She is ready to go home. Objective: Vital Signs Temp Pulse Resp BP Pulse Ox 36.7 C 81 16 89/62 L 95 04/22/18 08:57 04/22/18 08:00 04/22/18 08:00 04/22/18 08:00 04/22/18 08:00 Laboratory Results 04/22/18 04:51 04/19/18 04:55 04/21/18 04/22/18 04/23/18 05:59 05:59 05:59 Intake Total 500 250 Output Total 300 1 350 Balance 200 249 -350 Left Hip: dressings clean dry intact some edema and ecchymosis NVI distally full ROM of foot and ankle - Pending Discharge Pending Discharge Within 24 Hours: Yes Pending Discharge Date: 04/23/18 Pending Discharge Time: 11:00 ICD10 Worksheet Patient Problems: Problems Problem Status Onset Post-op pain Acute - ICD10 Problem Qualifiers (1) Post-op pain
[2018-04-22] MEDS: SENNOSIDES/DOCUSATE SODIUM TAB PO SCH (11:23)
[2018-04-22] MEDS: NAPROXEN SODIUM 220 MG TAB PO SCH ×2 (11:23→16:31)
[2018-04-22] MEDS: PANTOPRAZOLE SODIUM 40 MG TAB PO SCH (11:24)
[2018-04-22] MEDS: ASPIRIN EC 81 MG TAB PO SCH (11:24)
[2018-04-22] MEDS: APPLE CIDER VINEGAR PO SCH (12:41)
--- NOTE | 2018-04-22 12:48 | ASMTLACE ---
JOSEFAE Length of stay for Answers: 3 days current admission Acuity / Level of Answers: Yes Care: Did the patient have an inpatient admission? Comorbidities - select Answers: Opioid dependence all that apply / Chronic pain # of Emergency department Answers: 0 visits in the last 6 months Score: 10 Date Signed: 04/22/2018 12:47 PM Electronically Signed By:Yulisa Deleon RN
--- NOTE | 2018-04-22 12:49 | ASMTCMCOM ---
CM Note CM Note Notes: Pt cleared fo home by PT, CM available for any changes. recommends she has a friend stay with her. DC Plan: Independent Date Signed: 04/22/2018 12:49 PM Electronically Signed By:Yulisa Deleon RN
[2018-04-22 13:09] VITALS: BP 91/55
--- NOTE | 2018-04-25 13:35 | POSTANESTH ---
Post Anesthetic Evaluation Cardiovascular Status: Normal, Stable Respiratory Status: Normal, Stable Level of Consciousness/Mental Status: Can Participate in Eval Pain Control: Adequate, Prn Tx Ordered Nausea/Vomiting Control: Adequate, Prn Tx Ordered Complications Possibly Related to Anesthesia: None Noted
--- NOTE | 2018-04-26 08:15 | GDS ---
[f rep st] DISCHARGE SUMMARY Sandhya underwent a left hip periacetabular osteotomy for left hip acetabular dysplasia and Right hip screw removal. on April 18, 2018. Intraoperatively, Willingham and spinal catheters were placed. She was well pain managed postoperatively with just oral analgesia. She was up with physical therapy and a Willingham catheter was discontinued by her 1st postoperative day. By her 3rd postoperative day pelvis x-rays were obtained. X-ray showed good bone and screw fixation and she was discharged the following day in good condition. She will be nonweightbearing on her left lower extremity for 2 weeks until her postop appointment. She will be using sequential compression devices 24 hours a day 7 days a week for 2 weeks, thereafter only at night for another week. She will be also taking 81 mg baby aspirin daily for 1 month. Both of these for DVT prophylaxis. /[id number]/MODL MTDD
== END 2018-04-22 17:18 | disposition home or self-care (01) | DRG 481 ==
LOC: F3N 07:01
PROVIDERS: ADMIT Orthopaedic Surgery Sports Medicine; ATTEND Orthopaedic Surgery Sports Medicine
DX: M25.852 Other specified joint disorders, left hip (principal); Q65.89 Other specified congenital deformities of hip; T84.84XA Pain due to internal orthopedic prosthetic devices, implants and grafts, initial encounter; R55 Syncope and collapse; D62 Acute posthemorrhagic anemia
CPT/HCPCS: 97116-GP; 97161-GP; 97166-GO; 97530-GP; 97535-GO; C1713; J0690; J1100; J2001; J2250; J2270; J2274; J2370; J2405; J2704; J3010